=== PATIENT | male | born 2005 | race African-American/Black ===

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

== ENCOUNTER 2023-02-05 12:31 | Emergency (ER) | payer MEDICAID ==
[~2023-02-05] VITALS: Ht 185.4 cm; Wt 69.0 kg
[~2023-02-05 12:31] MED LIST: IBUP-2029 MT
[2023-02-05 12:40] VITALS: O2SAT 100
[2023-02-05 16:24] LABS: BASOPHILS % 0.5 % (0.0-2.0); EOSINOPHILS % 1.3 % (0.0-5.0); HEMATOCRIT. 45.7 % (42.0-52.0); HEMOGLOBIN. 15.5 g/dL (14.0-18.0); LYMPHOCYTES % 40.6 % (20.0-50.0); MEAN CORPUSCULAR HEMOGLOBIN 30.4 pg (28.0-32.0); MEAN CORPUSCULAR HGB CONC 33.9 g/dL (31.0-37.0); MEAN CORPUSCULAR VOLUME 89.6 fL (80.0-94.0); MEAN PLATELET VOLUME 9.1 fl (7.4-10.4); MONOCYTES % 6.8 % (2.0-8.0); NEUTROPHILS % 50.8 % (40.0-76.0); PLATELET 195 x1000/uL (130-400); RED BLOOD CELL COUNT 5.11 mill/uL (4.7-6.1); RED CELL DISTRIBUTION WIDTH 13.4 % (11.6-14.6); WHITE BLOOD COUNT 4.7 x1000/uL (4.5-11.0)
[2023-02-05 16:32] LABS: CHLORIDE 104 mEq/L (98-107); INDEX HEMOLYSI 1 (1-3); INDEX ICTERIC 1 (1-4); INDEX LIPEMIC 1 (1-3); POTASSIUM 3.7 mEq/L (3.5-5.1); SODIUM 136 mEq/L (136-145)
[2023-02-05 16:42] LABS: ALANINE AMINOTRANSFERASE 38 IU/L (13-61); ALBUMIN 4.3 g/dL (3.4-5.0); ASPARTATE AMINOTRANSFERASE 19 IU/L (15-37); BILIRUBIN TOTAL 1.1 mg/dL (0.1-1.0); CALCIUM 8.8 mg/dL (8.5-10.1); CARBON DIOXIDE 28 mEq/L (21-32); CREATININE 0.7 mg/dL (0.6-1.3); GLUCOSE 76 mg/dL (70-105); PROTEIN TOTAL 7.8 g/dL (6.0-8.3); TROPONIN I HIGH SENSITIVITY 4 ng/L (<78); UREA NITROGEN BLOOD 9 mg/dL (7-21)
[2023-02-05 17:38] VITALS: BP 123/76; PULSE 87; RESP 19; TEMP 98.1
== END 2023-02-05 17:40 | disposition home or self-care (01) ==
LOC: ER 12:31
DX: R07.89 Other chest pain (principal)
CPT/HCPCS: 36415; 71045; 80053; 84484; 85025; 93005; 99285

== ENCOUNTER 2023-02-24 22:09 | Emergency (ER) | payer MEDICAID ==
[~2023-02-24] VITALS: Ht 188 cm; Wt 72.0 kg
[2023-02-24 22:17] VITALS: TEMP 98.3; O2SAT 97
[2023-02-25] MEDS ORDERED: IBUPROFEN 600MG TABLET PO ONE
[2023-02-25 00:23] VITALS: BP 114/32; PULSE 62; RESP 18
[2023-02-25] MEDS ORDERED: IBUP-2029 MT (00:30)
== END 2023-02-25 00:51 | disposition home or self-care (01) ==
LOC: ER 22:09
DX: S80.11XA Contusion of right lower leg, initial encounter (principal); S00.81XA Abrasion of other part of head, initial encounter; V49.9XXA Car occupant (driver) (passenger) injured in unspecified traffic accident, initial encounter; Y93.89 Activity, other specified; Y92.89 Other specified places as the place of occurrence of the external cause; Y99.8 Other external cause status
CPT/HCPCS: 73590; 99283

== ENCOUNTER 2023-07-06 17:53 | Emergency (ER) | payer MEDICAID, OTHER ==
[~2023-07-06] VITALS: Ht 185.4 cm; Wt 68.0 kg
[2023-07-06 18:10] VITALS: BP 130/70; PULSE 98; RESP 12; TEMP 98.6; O2SAT 60
== END 2023-07-06 19:14 | disposition left against medical advice (07) ==
LOC: ER 17:53
DX: M24.411 Recurrent dislocation, right shoulder (principal)
CPT/HCPCS: 23650; 99152; 99285

== ENCOUNTER 2023-07-16 15:28 | Emergency (ER) | payer MEDICAID ==
[~2023-07-16] VITALS: Ht 188 cm; Wt 69.5 kg
[2023-07-16 15:38] VITALS: BP 102/64; PULSE 80; RESP 18; TEMP 98.3; O2SAT 100
[2023-07-16] MEDS ORDERED: IBUP-2029 MT (16:17)
== END 2023-07-16 16:25 | disposition home or self-care (01) ==
LOC: ER 15:28
DX: M25.511 Pain in right shoulder (principal)
CPT/HCPCS: 73030; 99283; A4565

== ENCOUNTER 2023-10-09 21:24 | Emergency (ER) | payer MEDICAID, OTHER ==
[~2023-10-09] VITALS: Ht 182.9 cm; Wt 68.0 kg
[2023-10-09 21:46] VITALS: BP 122/50; PULSE 89; RESP 16; TEMP 97.9; O2SAT 98
[2023-10-09] MEDS ORDERED: IBUP-2029 MT (23:09)
== END 2023-10-09 23:00 | disposition home or self-care (01) ==
LOC: ER 21:24
DX: M24.411 Recurrent dislocation, right shoulder (principal)
CPT/HCPCS: 73030; 99283

== ENCOUNTER 2025-01-28 13:57 | Emergency (ER) | payer MEDICAID ==
[~2025-01-28] VITALS: Ht 185.4 cm; Wt 70.0 kg
[~2025-01-28 13:57] MED LIST changes: +IBUP-1455 MT; -IBUP-2029 MT
[2025-01-28 14:04] VITALS: O2SAT 99
[2025-01-28 14:11] VITALS: BP 115/58; PULSE 87; RESP 16; TEMP 37; O2SAT 99
== END 2025-01-28 16:41 | disposition left against medical advice (07) ==
LOC: ER 13:57
DX: M79.89 Other specified soft tissue disorders (principal); Z53.21 Procedure and treatment not carried out due to patient leaving prior to being seen by health care provider
CPT/HCPCS: 73120